=== PATIENT | male | born 1960 | race Caucasian/White ===

== ENCOUNTER 2018-11-14 13:27 | Emergency (ER) | payer MEDICAID ==
[~2018-11-14] VITALS: Ht 157.5 cm; Wt 70.8 kg
[2018-11-14 13:33] VITALS: BP 181/102; Ht 157.5 cm; Wt 70.8 kg
== END 2018-11-14 16:33 | disposition home or self-care (01) ==
LOC: ED 13:27
DX: S52.611A Displaced fracture of right ulna styloid process, initial encounter for closed fracture (principal); S52.91XA Unspecified fracture of right forearm, initial encounter for closed fracture; W01.0XXA Fall on same level from slipping, tripping and stumbling without subsequent striking against object, initial encounter; Y93.89 Activity, other specified; Y92.89 Other specified places as the place of occurrence of the external cause; Y99.8 Other external cause status